=== PATIENT | female | born 1980 | race Caucasian/White ===

== ENCOUNTER 2016-04-23 09:55 | Emergency (ER) | payer SELFPAY ==
[~2016-04-23] VITALS: Ht 152.4 cm; Wt 64.0 kg
[2016-04-23 10:02] VITALS: BP 124/74
--- NOTE | 2016-04-23 10:06 | NUR ---
PATIENT AMBULATED TO BED 8 AT THIS TIME.
--- NOTE | 2016-04-23 10:21 | NUR ---
PT STATES SORE THORAT X2 DAYS. DENIES N/V/D; SKIN IS PINK/WARM/DRY; AAOX4 WITH EVEN AND STEADY GAIT; LUNGS SLIGHT WHEEZES BL; HR EVEN AND REGULAR; PT DENIES CP, SOB, AT THIS TIME; PATIENT STATES PAIN OF 9/10 AT THIS TIME; VSS; PATIENT POSITIONED FOR COMFORT; HOB ELEVATED; BEDRAILS UP X1; BED DOWN.
--- NOTE | 2016-04-23 10:32 | NUR ---
DR. ALEXANDER AT BEDSIDE TO ASSESS PATIENT.
[2016-04-23] MEDS ORDERED: KETOROLAC 60 MG/2 ML VIAL IM ONE (10:40)
[2016-04-23 11:23] VITALS: BP 124/74
--- NOTE | 2016-04-23 11:24 | NUR ---
Patient discharged with v/s stable. Written and verbal after care instructions given and explained. Patient alert, oriented and verbalized understanding of instructions. Ambulatory with steady gait. All questions addressed prior to discharge. ID band removed. Patient advised to follow up with PMD. Rx of PREDNISONE AND MOTRIN given. Patient educated on indication of medication including possible reaction and side effects. Opportunity to ask questions provided and answered.
== END 2016-04-23 11:24 | disposition home or self-care (01) ==
LOC: MED 09:55
PROC: 3E033GC Introduction of Other Therapeutic Substance into Peripheral Vein, Percutaneous Approach (ICD-10-PCS; principal; 2016-04-23)
DX: J06.9 Acute upper respiratory infection, unspecified (principal)
CPT/HCPCS: 81025; 96372; 99283; J1885